=== PATIENT | male | born 1995 | race Two or more races ===

== ENCOUNTER → 2017-07-01 | Outpatient (REF) | payer OTHER | LOC: EEVIPCON 16:51 → M SFHCLERA 16:51 | PROVIDERS: ATTEND Physician Assistant | DX: L03.317 Cellulitis of buttock (principal) ==

== ENCOUNTER 2020-03-17 14:52 | Emergency (ER) | payer BC ==
[~2020-03-17] VITALS: Ht 180.3 cm; Wt 122.7 kg
[2020-03-17] MEDS ORDERED: GLUCAGON INJ 1MG VIAL IV STA (15:29)
[2020-03-17] MEDS ORDERED: ONDANSETRON 4MG/2ML VIAL IV ONE (15:30)
[2020-03-17 15:53] VITALS: BP 123/69
== END 2020-03-17 16:25 | disposition home or self-care (01) ==
LOC: M ED 14:52
DX: T18.128A Food in esophagus causing other injury, initial encounter (principal); Z88.8 Allergy status to other drugs, medicaments and biological substances
CPT/HCPCS: 96374; 96375; 99284; J1610; J2405

== ENCOUNTER → 2020-03-17 | Outpatient (CLI) | payer BC ==
--- NOTE | 2020-03-17 15:32 | REP ---
SOFT TISSUES NECK: AP and lateral views of soft tissues neck performed. Soft tissue prominence is seen in the region of the proximal esophagus which could represent an impacted soft tissue foreign body. There is no prevertebral soft tissue swelling. The adenoids are not enlarged. Epiglottis is normal. Calcific density in the right submandibular region 8 mm in diameter and another in the left submandibular region 5 mm in diameter may represent sialoliths. IMPRESSION: Possible soft tissue foreign body in the proximal esophagus. Possible bilateral sialoliths. Electronically Signed by Vu Shin MD 03/17/2020 04:24 P
== END ==
LOC: M LRY 13:52
PROVIDERS: ATTEND Physician Assistant
DX: R13.10 Dysphagia, unspecified (principal)